=== PATIENT | male | born 1970 | race Caucasian/White ===

== ENCOUNTER 2017-10-03 10:01 | Emergency (ER) | payer BC ==
[~2017-10-03] VITALS: Ht 180.3 cm; Wt 111.1 kg
[2017-10-03] MEDS ORDERED: LISINOPRIL20 MG PO (10:21)
[2017-10-03] MEDS ORDERED: CYCLOBENZAPRINE5 MG PO (10:33)
[2017-10-03 11:20] VITALS: BP 129/89
== END 2017-10-03 11:24 | disposition home or self-care (01) ==
LOC: ER 10:01
DX: S16.1XXA Strain of muscle, fascia and tendon at neck level, initial encounter (principal); I10 Essential (primary) hypertension; V89.2XXA Person injured in unspecified motor-vehicle accident, traffic, initial encounter; Y93.I9 Activity, other involving external motion; Y92.89 Other specified places as the place of occurrence of the external cause; Y99.8 Other external cause status